=== PATIENT | female | born 1995 | race Hispanic/Latino ===

== ENCOUNTER → 2018-10-30 | Outpatient (CLI) | payer OTHER | END | disposition home or self-care (01) | LOC: RAH 09:46 | PROVIDERS: ATTEND Orthopaedic Surgery | DX: M13.842 Other specified arthritis, left hand (principal); K00-K95 Diseases of the digestive system | CPT/HCPCS: 73120 ==

== ENCOUNTER → 2019-06-08 | Outpatient (CLI) | payer OTHER ==
[~2019-06-08] MED LIST: GADODIAMIDE 10 MMOL/20 ML VIAL IV ONE; IOPAMIDOL 10 ML VIAL ONE; LIDOCAINE HCL 1% 20 ML VIAL ONE
== END ==
LOC: RAH 07:56
PROVIDERS: ATTEND Nurse Practitioner Family
DX: S73.102A Unspecified sprain of left hip, initial encounter (principal); X58.XXXA Exposure to other specified factors, initial encounter; Y93.89 Activity, other specified; Y92.89 Other specified places as the place of occurrence of the external cause; Y99.8 Other external cause status; N94.89 Other specified conditions associated with female genital organs and menstrual cycle
CPT/HCPCS: 27093; 73723; 77002; A9579; Q9966 ×2